=== PATIENT | female | born 1960 | race Caucasian/White ===

== ENCOUNTER 2019-05-31 07:03 | Day surgery (SDC) | payer OTHER ==
[~2019-05-31 07:03] MED LIST: ACETAMINOPHEN 1,000 MG/100 ML BTL IVPB ONE; FAMOTIDINE 20MG TABLET PO ONE; MECLIZINE 25 MG TABLET PO ONE; METOCLOPRAMIDE 10 MG TABLET PO ONE
[2019-05-31] MEDS ORDERED: PROPOFOL 10 MG/ML VIAL IV ONE (07:04)
[2019-05-31] MEDS ORDERED: FENTANYL PF 100MCG/2ML VIAL IV ONE (07:04)
[2019-05-31] MEDS ORDERED: SUGAMMADEX SODIUM 200 MG/2 ML VIAL IV ONE (07:04)
[2019-05-31] MEDS ORDERED: ONDANSETRON HCL IV 4 MG/2 ML VIAL IVP ONE (07:04)
[2019-05-31] MEDS ORDERED: KETOROLAC 30 MG/ML VIAL IVP ONE (07:04)
[2019-05-31] MEDS ORDERED: GLYCOPYRROLATE 0.2 MG/ML ML IV ONE (07:04)
[2019-05-31] MEDS ORDERED: ROCURONIUM BROMIDE 50MG/5ML VIAL IV ONE (07:04)
[2019-05-31] MEDS ORDERED: EPHEDRINE SULFATE 50 MG/ML ML IV ONE (07:04)
[2019-05-31] MEDS ORDERED: SUCCINYLCHOLINE 20 MG/ML 10ML IVP ONE (07:04)
[2019-05-31] MEDS ORDERED: DESFLURANE 240 ML BTL INH ONE (07:04)
[2019-05-31] MEDS ORDERED: MIDAZOLAM HCL 2MG/2ML VIAL IV ONE (07:04)
[2019-05-31] MEDS ORDERED: LIDOCAINE 2% MDV (20MG/ML) 20ML VIAL IV ONE (07:04)
[2019-05-31] MEDS ORDERED: RINGERS SOLUTION,LACTATED 1,000 ML IV ONE ×2 (07:35→08:35)
[2019-05-31] MEDS ORDERED: BUPIVACAINE 0.25% W/EPI MPF 30ML VIAL SQ ONE (08:45)
[2019-05-31] MEDS ORDERED: ONDANSETRON HCL IV 4 MG/2 ML VIAL IVP PRN (09:37)
[2019-05-31] MEDS ORDERED: FENTANYL CITRATE/PF (PACU) 50 MCG/ML VIAL IVP PRN (09:51)
--- NOTE | 2019-06-01 08:20 | Operative Note ---
DATE OF SURGERY: 05/31/2019 SURGEON: Fritz Knox DO PREOPERATIVE DIAGNOSIS: Symptomatic biliary dyskinesia. POSTOPERATIVE DIAGNOSIS: Symptomatic biliary dyskinesia. OPERATION: Laparoscopic cholecystectomy. PROCEDURE: The patient is a 58-year-old female who was brought to the operating room and placed in a supine position. General anesthesia was administered per the department of anesthesia. The patient's abdomen was prepped and draped in the usual sterile fashion. The patient had an infraumbilical laparotomy and therefore I did elect to lace a supraumbilical port. This area was anesthetized with a total of 2 mL of 0.25% Sensorcaine with epinephrine. A 2 cm supraumbilical incision was made. This was carried down to the anterior rectus fascia. This was incised. Felicita clamps were placed on the fascial edges and brought up into the wound. Stay sutures of 0 Vicryl were placed. Posterior rectus sheath was identified and incised. The peritoneal cavity was entered bluntly. Finger sweep was done. There were some mild adhesions anteriorly which were felt to be omentum. We did have a clear window to place the trocar bluntly. Adequate pneumoperitoneum was then established. Additional 5 mm epigastric and two 5 mm right subcostal ports were placed. There were no upper abdominal adhesions. The patient was rotated into reverse Trendelenburg with rotation to left. The gallbladder was identified. The patient had extreme fatty infiltration of the liver which almost enveloped the entire gallbladder. Therefore, I elected to do a dome down technique. This was coned down to Tushar's pouch. This enabled me to get significant length where visualization was excellent. Due to the dome down technique, I already released the gallbladder from the cystic plate. The cystic duct and cystic artery were clearly identified. Each one was doubly clipped and cut in a standard fashion. Gallbladder was then extracted through the umbilical port. During this extraction, I did view down to the pelvis. The adhesions were noted. There was no bowel injury noted. No bile leaking noted. At this time, the patient was leveled out. The pneumoperitoneum was released. All ports were removed. The fascia was closed with 0 Vicryl in a [id number] fashion. The skin at all ports was closed with 4-0 Vicryl. The patient was taken to the recovery room in stable condition. FINDINGS AT THE TIME OF SURGERY: Chronic cholecystitis. MTDD
== END 2019-05-31 10:10 | disposition home or self-care (01) ==
LOC: SUR 07:03
PROVIDERS: ATTEND Surgery
DX: K81.1 Chronic cholecystitis (principal); K21.9 Gastro-esophageal reflux disease without esophagitis; E78.00 Pure hypercholesterolemia, unspecified; E11.9 Type 2 diabetes mellitus without complications; J45.909 Unspecified asthma, uncomplicated
CPT/HCPCS: J0330; J1885; J2405; J3490; J7120